=== PATIENT | female | born 1995 | race Two or more races ===

== ENCOUNTER 2018-10-20 00:03 | Emergency (ER) | payer SELFPAY ==
--- NOTE | 2018-10-20 01:20 | ED PDOC ---
HPI: Psych/Substance Abuse Time Seen by Provider: 10/20/18 00:15 Chief Complaint (Nursing): Alcohol Ingestion Chief Complaint (Provider): Alcohol Ingestion ED Caveat: Acuity of Condition, Intoxicated History Per: Patient, Other (friend) History/Exam Limitations: clinical condition, intoxication Suicide/Self Injury Attempted (Context): Ingestion (prescription medication (mirtazapine, clonazepam)) Additional Complaint(s): 23 y/o female with history of depression and anxiety presents to the ED with suicide overdose. Patient got into an argument with her boyfriend and proceeded to take Clonazepam 0.25mg and Mirtazapine 15 mg and possibly some Escitalopram along with alcohol. Ingestion was witnessed by her friend but is unclear how much she took; however, friend states that she thinks it was many pills of Clonazepam and Mirtazapine because those 2 bottles are now empty. Past Medical History Reviewed: Historical Data, Nursing Documentation, Vital Signs Vital Signs: Last Vital Signs Temp 97.5 F L 10/20/18 00:07 Pulse 105 H 10/20/18 00:07 Resp 16 10/20/18 00:07 BP 144/87 10/20/18 00:07 Pulse Ox 100 10/20/18 00:07 - Medical History PMH: Anxiety, Depression - Family History Family History: States: Unknown Family Hx - Allergies Allergies/Adverse Reactions: Allergies Allergy/AdvReac Type Severity Reaction Status Date / Time No Known Allergies Allergy Verified 10/20/18 00:11 Review of Systems Review Of Systems: ROS cannot be obtained secondary to pt's inabilty to answer questions. Physical Exam - Reviewed Nursing Documentation Reviewed: Yes Vital Signs Reviewed: Yes - Physical Exam Appears: Positive for: No Acute Distress (drowsy and uncooperative) Head Exam: Positive for: ATRAUMATIC, NORMAL INSPECTION, NORMOCEPHALIC Skin: Positive for: Normal Color, Warm, DRY Eye Exam: Negative for: PERRL (1-2 mm pupils; minimally responsive) ENT: Positive for: Normal ENT Inspection Neck: Positive for: Normal, Painless ROM Cardiovascular/Chest: Positive for: Regular Rate, Rhythm. Negative for: Murmur Respiratory: Positive for: Normal Breath Sounds. Negative for: Respiratory Distress Gastrointestinal/Abdominal: Positive for: Normal Exam, Soft. Negative for: Tenderness Extremity: Positive for: Normal ROM. Negative for: Pedal Edema, Deformity Neurologic/Psych: Positive for: Alert, Mood/Affect (uncooperative). Negative for: Oriented, Motor/Sensory Deficits - Laboratory Results Result Diagrams: 10/20/18 01:15 10/20/18 01:15 - ECG O2 Sat by Pulse Oximetry: 100 (RA) Pulse Ox Interpretation: Normal Medical Decision Making Medical Decision Making: Time: 00:30 A/P: 23 y/o female with history of depression presents with OD. Patient on 1:1 observation. Poison control being contacted by nurse. Patient does not have enough mental status to tolerate activated charcoal at this time. Will monitor closely. EKG shows no arrhythmia at this time and intervals are normal. Will continue monitoring. * Labs * EKG * 1:1 Observation 0400 Patient is awake, alert, oriented x 4 Vitals stable Labs reviewed, hypoglycemia resolved with D5 Seen by Crisis, to be transferred to other psych facility 0500 Patient is medically cleared for psychiatric admission 07:00 Patient care endorsed to Dr. Watson pending crisis decision. Scribe Attestation: Documented by Molina Shah acting as a scribe for Alli Roy MD. Provider Scribe Attestation: All medical record entries made by the Scribe were at my direction and perso luz dictated by me. I have reviewed the chart and agree that the record accurately reflects my personal performance of the history, physical exam, medical decision making, and the department course for this patient. I have also personally directed, reviewed, and agree with the discharge instructions and disposition. Disposition - Clinical Impression Clinical Impression: Alcohol abuse - Patient ED Disposition Is Patient to be Admitted: Transfer of Care - Disposition Disposition: Transfer of Care Disposition Time: 07:00 Condition: STABLE Forms: [employer] [facility] ([place]) Patient Signed Over To: Naomi Watson Handoff Comments: pending final crisis decision
[2018-10-20] MEDS ORDERED: Sodium Chloride 0.9% 1,000 ML IV STA (02:20)
[2018-10-20 02:30] LABS: BASO % 0.4 % (0.0-2.0); EOS % 0.4 % (0.0-4.0); HEMOGLOBIN 13.1 g/dL (12.0-16.0); LYMPH # 1.6 K/uL (1.0-4.3); LYMPH % 24.2 % (20.0-40.0); MEAN CELL VOLUME 92.8 fl (81.0-99.0); MEAN CORPUSCULAR HGB CONC 33.4 g/dL (33.0-37.0); MEAN PLATELET VOLUME 9.1 fl (7.2-11.7); MONO # 0.3 K/uL (0.0-0.8); MONO % 5.1 % (0.0-10.0); NEUT # 4.7 K/uL (1.8-7.0); NEUT % 69.9 % (50.0-75.0); NRBC % 0.1 % (0.0-0.0); RBC 4.24 Mil/uL (3.80-5.20); RED CELL DISTRIBUTION WIDTH 13.2 % (11.5-14.5); WHITE BLOOD COUNT 6.7 K/uL (4.8-10.8)
[2018-10-20 02:41] LABS: ACETAMINOPHEN < 10.0 ug/ml (10.0-30.0); SALICYLATE < 1.0 mg/dl
[2018-10-20 02:59] LABS: ALB/GLOB RATIO 1.4 (1.0-2.1); ALBUMIN 4.9 g/dL (3.5-5.0); BLOOD UREA NITROGEN 14 mg/dl (7-17); CALCIUM 9.3 mg/dL (8.4-10.2); GFR NON-AFRICAN AMERICAN > 60
[2018-10-20 03:03] LABS: ALT/SGPT 36 U/L (9-52); AST/SGOT 48 U/L (14-36)
[2018-10-20 04:46] LABS: BARBITURATES, UR NEGATIVE (NEGATIVE); BENZODIAZEPINES, UR NEGATIVE (NEGATIVE); OPIATES, UR NEGATIVE (NEGATIVE); PHENCYCLIDINE, UR NEGATIVE (NEGATIVE)
--- NOTE | 2018-10-20 07:05 | ED PDOC ---
- Laboratory Results Result Diagrams: 10/20/18 01:15 10/20/18 01:15 Lab Results: Total Bilirubin 0.7 mg/dl (0.2-1.3) 10/20/18 01:15 AST 48 U/L (14-36) H 10/20/18 01:15 ALT 36 U/L (9-52) 10/20/18 01:15 Alkaline Phosphatase 47 U/L (38-126) 10/20/18 01:15 Total Protein 8.4 G/DL (6.3-8.2) H 10/20/18 01:15 Albumin 4.9 g/dL (3.5-5.0) 10/20/18 01:15 Globulin 3.5 gm/dL (2.2-3.9) 10/20/18 01:15 Albumin/Globulin Ratio 1.4 (1.0-2.1) 10/20/18 01:15 - ECG O2 Sat by Pulse Oximetry: 100 (RA) Pulse Ox Interpretation: Normal Medical Decision Making Medical Decision Making: Time: 0700 --Patient endorsed to provider by Dr. Roy, pending available bed for psychiatric admission. Time: 0950 --Re-eval: patient with stable vitals and resting comfortably. 8-hour reassessment by boom stick worker completed. Will continue to await location for inpatient voluntary admission. 1330 CXR and UA normal. Pt is medically optimized for evaluation by psychiatry. 1700 Pt pending acceptance by [facility] for psychiatry placement. Pt has remained comfortable with full medical clearance for transfer and psychiatric c are. Scribe Attestation: Documented by Neeta Garner, acting as a scribe for Naomi Watson MD. Provider Scribe Attestation: All medical record entries made by the Scribe were at my direction and personally dictated by me. I have reviewed the chart and agree that the record accurately reflects my personal performance of the history, physical exam, medical decision making, and the department course for this patient. I have also personally directed, reviewed, and agree with the discharge instructions and disposition. Disposition - Clinical Impression Clinical Impression: Alcohol abuse - POA Present On Arrival: None - Disposition Disposition: Transfer of Care Disposition Time: 17:04 Condition: STABLE Forms: [employer] ([place]ian)
[2018-10-20 10:09] VITALS: O2SAT 100
[2018-10-20 13:29] LABS: SQUAMOUS EPITHIAL 1 /hpf (0-5); URINE BACTERIA RARE (<OCC); URINE BILIRUBIN NEGATIVE (NEGATIVE); URINE BLOOD LARGE (NEGATIVE); URINE CLARITY SLIGHTY-CLOUDY (Clear); URINE COLOR YELLOW (YELLOW); URINE GLUCOSE (UA) NEG (NEGATIVE); URINE LEUKOCYTE ESTERASE NEG Leu/uL (Negative); URINE PROTEIN NEGATIVE (NEGATIVE); URINE UROBILINOGEN 0.2-1.0 mg/dL (0.2-1.0)
--- NOTE | 2018-10-20 14:10 | RAD ---
Date of service: 10/20/2018 HISTORY: possible admission COMPARISON: No prior. FINDINGS: LUNGS: The lungs are well inflated and clear. PLEURA: No pleural effusions or pneumothorax. CARDIOVASCULAR: The heart is normal in size. No aortic atherosclerotic calcifications present. OSSEOUS STRUCTURES: Within normal limits for the patient's age. VISUALIZED UPPER ABDOMEN: Normal. OTHER FINDINGS: None. IMPRESSION: No active pulmonary disease.
--- NOTE | 2018-10-20 15:39 | CARD ---
APPROVED REPORT Date of service: 10/20/2018 EKG Measurement Heart [id number] <Conclusion> Normal sinus rhythm Normal ECG
--- NOTE | 2018-10-20 17:03 | ED PDOC ---
- Laboratory Results Result Diagrams: 10/20/18 01:15 10/20/18 01:15 Lab Results: Total Bilirubin 0.7 mg/dl (0.2-1.3) 10/20/18 01:15 AST 48 U/L (14-36) H 10/20/18 01:15 ALT 36 U/L (9-52) 10/20/18 01:15 Alkaline Phosphatase 47 U/L (38-126) 10/20/18 01:15 Total Protein 8.4 G/DL (6.3-8.2) H 10/20/18 01:15 Albumin 4.9 g/dL (3.5-5.0) 10/20/18 01:15 Globulin 3.5 gm/dL (2.2-3.9) 10/20/18 01:15 Albumin/Globulin Ratio 1.4 (1.0-2.1) 10/20/18 01:15 Urine Color Yellow (YELLOW) 10/20/18 12:54 Urine Clarity Slighty-cloudy (Clear) 10/20/18 12:54 Urine pH 7.0 (5.0-8.0) 10/20/18 12:54 Ur Specific [place] 1.008 (1.003-1.030) 10/20/18 12:54 Urine Protein Negative mg/dL (NEGATIVE) 10/20/18 12:54 Urine Glucose (UA) Neg mg/dL (NEGATIVE) 10/20/18 12:54 Urine Ketones Trace mg/dL (NEGATIVE) 10/20/18 12:54 Urine Blood Large (NEGATIVE) 10/20/18 12:54 Urine Nitrate Negative (NEGATIVE) 10/20/18 12:54 Urine Bilirubin Negative (NEGATIVE) 10/20/18 12:54 Urine Urobilinogen 0.2-1.0 mg/dL (0.2-1.0) 10/20/18 12:54 Ur Leukocyte Esterase Neg Cristóbal/uL (Negative) 10/20/18 12:54 Urine RBC (Auto) 10 /hpf (0-3) H 10/20/18 12:54 Urine Microscopic WBC < 1 /hpf (0-5) 10/20/18 12:54 Ur Squamous Epith Cells 1 /hpf (0-5) 10/20/18 12:54 Urine Bacteria Rare (<OCC) 10/20/18 12:54 - ECG O2 Sat by Pulse Oximetry: 100 (RA) Medical Decision Making Medical Decision Making: Assumed care from Dr Watosn. Pending bed assignment and final disposition. 1829 Patient has no complains. NAD. Awaiting psych disposition. Disposition Counseled Patient/Family Regarding: Studies Performed, Diagnosis - Clinical Impression Clinical Impression: Alcohol abuse, Overdose - POA Present On Arrival: None - Disposition Disposition: Other Institution ([facility] [place] [facility]) Disposition Time: 18:51 Condition: STABLE
[2018-10-20 20:11] VITALS: BP 121/57; PULSE 94; RESP 18; TEMP 98.7
== END 2018-10-20 21:20 | disposition short-term general hospital (02) ==
LOC: H.ER 00:03 → H.ERHOLD 13:07 → UNDOADMIN 13:07 → H.ER 21:20
DX: F10.10 Alcohol abuse, uncomplicated (principal); Z00.8 Encounter for other general examination
CPT/HCPCS: 71045; 80053; 81003; 81025; 82948; 85025; 93005; 96360; 99285; G0480; J7030; J7070